=== PATIENT | female | born 1945 | race Two or more races ===

== ENCOUNTER 2017-02-24 13:59 | Outpatient (CLI) | payer MEDICARE, OTHER | END 2017-02-24 23:59 | disposition home or self-care (01) | LOC: RAD 13:59 | PROVIDERS: ATTEND Surgery | DX: Z01.818 Encounter for other preprocedural examination (principal); K80.10 Calculus of gallbladder with chronic cholecystitis without obstruction; E03.9 Hypothyroidism, unspecified; F41.9 Anxiety disorder, unspecified | CPT/HCPCS: 71020-TC ==

== ENCOUNTER 2017-02-28 05:31 | Day surgery (SDC) | payer MEDICARE, OTHER ==
[~2017-02-28] VITALS: Ht 157.5 cm; Wt 64.9 kg
[2017-02-28] MEDS ORDERED: CEFAZOLIN SODIUM/DEXTROSE,ISO 50 ML IV ONE (05:49)
[2017-02-28] MEDS ORDERED: LIDOCAINE 0.5% HCL 50 ML VIAL ONE (06:41)
[2017-02-28] MEDS ORDERED: FENTANYL PF 100MCG/2ML AMPUL ONE (07:25)
[2017-02-28] MEDS ORDERED: SEVOFLURANE 250 ML BOTTLE IH ONE (07:27)
[2017-02-28] MEDS ORDERED: BACITRACIN ZINC OINT (15 GM) 15 GM TUBE TP ONE (09:02)
[2017-02-28] MEDS ORDERED: ACETAMINOPHEN 325 MG TABLET ONE (10:06)
[2017-02-28] MEDS ORDERED: ONDANSETRON HCL/PF 4 MG/2 ML VIAL IV PRN (12:00)
[2017-02-28] MEDS ORDERED: IBUPROFEN 200 MG TABLET PO ONE (12:00)
[2017-02-28] MEDS ORDERED: GABAPENTIN 300 MG CAPSULE PO ONE (12:00)
[2017-02-28] MEDS ORDERED: ACETAMINOPHEN 325 MG TABLET PO ONE (12:00)
[2017-02-28] MEDS ORDERED: IV LR 1000 ML 1,000 ML IV PRN (12:00)
[2017-02-28] MEDS ORDERED: HYDROCODONE/APAP 10/325MG 1 EA TABLET PO PRN (12:00)
== END 2017-02-28 12:01 | disposition home or self-care (01) ==
LOC: DS 05:31
PROVIDERS: ATTEND Surgery
DX: K80.10 Calculus of gallbladder with chronic cholecystitis without obstruction (principal); E03.9 Hypothyroidism, unspecified; F41.9 Anxiety disorder, unspecified
CPT/HCPCS: 88304-TC; 88305-TC; A6402; J0360; J0690; J1100; J1885; J2405; J2704; J2710; J3010; J3490